=== PATIENT | female | born 1995 | race Hispanic/Latino ===

== ENCOUNTER 2021-04-26 16:04 | Emergency (ER) | payer BC ==
[2021-04-26 16:44] LABS: Urine Blood Negative (Negative); Urine Glucose Negative (Negative); Urine Protein Negative (Negative)
--- NOTE | 2021-04-26 16:59 | RAD REPORT ---
EXAM DESCRIPTION: US - Abdomen Exam Limited - 04/26/2021 4:46 pm CLINICAL HISTORY: ABD PAIN COMPARISON: No comparisons FINDINGS: No gallstones, sludge or other abnormalities within the gallbladder lumen. There is no wal l thickening or pericholecystic fluid. No common duct stone or biliary tree dilatation identified. IMPRESSION: Normal gallbladder and biliary tree ultrasound.
--- NOTE | 2021-04-26 18:06 | RAD REPORT ---
EXAM DESCRIPTION: CT - Stone Protocol - 04/26/2021 5:18 pm CLINICAL HISTORY: ABD PAIN COMPARISON: No comparisons TECHNIQUE: Axial 5 mm thick images were obtained without oral or IV contrast. The [id number] span s the entirety of the system including uppermost abdomen and lung bases. All CT scans are performed using dose optimization technique as appropriate and may include automated exposure control or mA/KV adjustment according to patient size. FINDINGS: No hydronephrosis is present and no obstructing ureteral calculi. No suspicious renal mass es. Isodense masses and pyelonephritis are not excluded on a stone protocol CT scan. No significant a drenal finding. No urinary bladder suspicious finding. No nonobstructing renal calculi seen. There ar e multiple phleboliths along the pelvic floor none of which are believed to be associated with the ur eter. Left deviated uterus shows no suspicious finding on noncontrast imaging. No ovarian suspicious findin g. There are no fallopian tube abnormality seen. Imaged portions of the liver, spleen and pancreas show no suspicious findings on non-contrast imaging . No gallbladder or biliary tree abnormality identified. No stomach or small bowel acute finding. There is a large amount of stool filling but not dilating th e entirety of the colon. No appendicitis. No hernia, mass or bulky lymphadenopathy noted. No free air, free fluid or inflammatory stranding. No significant bony abnormality. IMPRESSION: Noncontrast CT abdomen and pelvis imaging shows no significant or suspicious finding. Large stool volume is present throughout the colon with no acute colon wall thickening or mass identi fiable. Isodense masses and pyelonephritis are not excluded on stone protocol technique.
--- NOTE | 2021-04-26 19:39 | EDPHYS ---
Physician Documentation [facility] Name: Anyi Rocha Age: 26 yrs Sex: Female : 1995 Arrival Date: 04/26/2021 Time: 16:07 Bed 30 Private MD: ED Physician John Ruelas HPI: 04/26 20:18 This 26 yrs old Female presents to ER via Ambulatory with complaints of kb Abdominal Pain. 20:18 The patient presents with abdominal pain right upper lateral. Onset: The kb symptoms/episode began/occurred 2 month(s) ago. The symptoms do not radiate. Associated signs and symptoms: none. The symptoms are described as constant. Modifying factors: The symptoms are alleviated by nothing, the symptoms are aggravated by nothing. Severity of pain: At its worst the pain was moderate in the emergency department the pain is unchanged. The patient has not experienced similar symptoms in the past. The patient has not recently seen a physician. 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 - Social history:: Smoking status: Patient denies any tobacco usage or history of. ROS: 20:18 Constitutional: Negative for fever, chills, and weight loss. kb 20:18 Abdomen/GI: Positive for abdominal pain, of the anterior aspect of right lateral abdomen. 20:18 All other systems are negative. Exam: 20:18 Constitutional: This is a well developed, well nourished patient who is awake, alert, kb and in no acute distress. ENT: Moist Mucous membranes Chest/axilla: Normal chest wall appearance and motion. Cardiovascular: Regular rate and rhythm with a normal S1 and S2. No gallops, murmurs, or rubs. No pulse deficits. Respiratory: Respirations even and unlabored. No increased work of breathing, no retractions or nasal flaring. Skin: Warm, dry with normal turgor. Normal color. MS/ Extremity: Pulses equal, no cyanosis. Neurovascular intact. Full, normal range of motion. Neuro: Awake and alert, GCS 15, oriented to person, place, time, and situation. Moves all extremities. Normal gait. Psych: Awake, alert, with orientation to person, place and time. Behavior, mood, and affect are within normal limits. 20:18 Abdomen/GI: Inspection: abdomen appears normal, Bowel sounds: normal, in all quadrants, Palpation: soft, in all quadrants, mild abdominal tenderness, in the anterior aspect of right lateral abdomen. Vital Signs: 16:33 BP 129 / 85; Pulse 74; Resp 17; Temp 97.3; Pulse Ox 99% on R/A; Weight 65.77 kg (R); jl7 Height 5 ft. 6 in. (167.64 cm); Pain 5/10; 16:33 Body Mass Index 23.40 (65.77 kg, 167.64 cm) jl7 MDM: 16:32 Patient medically screened. kb 20:18 Data reviewed: vital signs, nurses notes. Data interpreted: Pulse oximetry: on room air kb is 99 %. Interpretation: normal. Counseling: I had a detailed discussion with the patient and/or guardian regarding: the historical points, exam findings, and any diagnostic results supporting the discharge/admit diagnosis, lab results, radiology results, the need for outpatient follow up, a family practitioner, to return to the emergency department if symptoms worsen or persist or if there are any questions or concerns that arise at home. 04/26 16:44 Order name: Urine Dipstick-Ancillary; Complete Time: 17:03 EDMS 04/26 17:11 Order name: Urine --Ancillary (enter results) bd 04/26 16:28 Order name: US Abdomen Limited; Complete Time: 17:03 jl7 04/26 17:10 Order name: CT Stone Protocol; Complete Time: 18:30 kb 04/26 17:12 Order name: Urine --Ancillary; Complete Time: 17:24 EDMS 04/26 16:28 Order name: Urine Dipstick-Ancillary (obtain specimen) jl7 Administered Medications: No medications were administered Disposition: 04/27 08:44 Co-signature as Attending Physician, John Ruelas MD I agree with the assessment and kdr plan of care. Disposition Summary: 04/26/21 19:38 Discharge Ordered Location: Home kb Condition: Stable kb Diagnosis - Abdominal pain, unspecified - right upper lateral abd kb Followup: kb - With: Emergency Department - When: As needed - Reason: Worsening of condition Followup: kb - With: Private Physician - When: 2 - 3 days - Reason: Recheck today's complaints, Continuance of care, Re-evaluation by your physician Discharge Instructions: - Discharge Summary Sheet kb - Muscle Cramps and Spasms, [id number] kb - Muscle Strain, [id number] kb Forms: - Medication Reconciliation Form kb - Thank You Letter kb - Antibiotic Education kb - Prescription Opioid Use kb Prescriptions: - Ibuprofen 600 mg Oral Tablet - take 1 tablet by ORAL route every 6 hours As needed take with food; 30 tablet; kb Refills: 0, Product Selection Permitted - Cyclobenzaprine 10 mg Oral Tablet - take 1 tablet by ORAL route every 8 hours As needed; 21 tablet; Refills: 0, kb Product Selection Permitted Signatures: Dispatcher [employer] EDLeonor Stack, John Berger MD MD kdr Leal, Jahala RN RN jl7 Corrections: (The following items were deleted from the chart) 04/26 17:15 17:04 Chest Single View+[email or web address] ordered. EDRI EDMS
--- NOTE | 2021-04-26 19:39 | ER ---
Nurse's Notes [facility] Name: Anyi Rocha Age: 26 yrs Sex: Female : 1995 Arrival Date: 04/26/2021 Time: 16:07 Bed 30 Private MD: Diagnosis: Abdominal pain, unspecified-right upper lateral abd Presentation: 04/26 16:33 Chief complaint: Patient states: RUQ pain and nausea x 2 months, worse today. jl7 Coronavirus screen: Client denies travel out of the [place] in the last 14 days. At this time, the client does not indicate any symptoms associated with coronavirus-19. Ebola Screen: No symptoms or risks identified at this time. Initial Sepsis Screen: Does the patient meet any 2 criteria? No. Patient's initial sepsis screen is negative. Does the patient have a suspected source of infection? No. Patient's initial sepsis screen is negative. Risk Assessment: Do you want to hurt yourself or someone else? Patient reports no desire to harm self or others. Onset of symptoms was April 26, 2021 at 03:00. Care prior to arrival: None. 16:33 Method Of Arrival: Ambulatory [facility] 16:33 Acuity: JORGE LUIS 3 jl7 Triage Assessment: 16:35 General: Appears in no apparent distress. uncomfortable, Behavior is calm, cooperative, jl7 appropriate for age. Pain: Complains of pain in right upper quadrant Pain currently is 5 out of 10 on a pain scale. GI: Reports upper abdominal pain, nausea. 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 - Social history:: Smoking status: Patient denies any tobacco usage or history of. Screenin:44 Abuse screen: Denies threats or abuse. Denies injuries from another. Nutritional tr6 screening: No deficits noted. Tuberculosis screening: No symptoms or risk factors identified. Fall Risk None identified. Assessment: 16:20 Reassessment: ABIMAEL Galvez in triage assessing pt. jl7 19:38 Reassessment: pt seen by BLENDING TANK HELPER Andi and cleared for discharge. tr6 Vital Signs: 16:33 BP 129 / 85; Pulse 74; Resp 17; Temp 97.3; Pulse Ox 99% on R/A; Weight 65.77 kg (R); jl7 Height 5 ft. 6 in. (167.64 cm); Pain 5/10; 16:33 Body Mass Index 23.40 (65.77 kg, 167.64 cm) jl7 ED Course: 16:07 Patient arrived in ED. as 16:32 Leon[facility] Escamilla [facility]-C [facility] kb 16:32 John Ruelas MD is Attending Physician. kb 16:35 Triage completed. jl7 16:35 Arm band placed on right wrist. Patient placed in waiting room, Patient notified of jl7 wait time. 16:46 US Abdomen Limited In Process Unspecified. EDMS 17:17 CT Stone Protocol In Process Unspecified. EDMS 19:16 Anca Francis, RN is Primary Nurse. tr6 19:44 Patient has correct armband on for positive identification. Bed in low position. Call tr6 light in reach. Side rails up X 1. 19:45 No provider procedures requiring assistance completed. Patient did not have IV access tr6 during this emergency room visit. Administered Medications: No medications were administered Outcome: 19:38 Discharge ordered by . kb 19:45 Discharged to home ambulatory. tr6 19:45 Condition: stable 19:45 Discharge instructions given to patient, family, mother Instructed on discharge instructions, follow up and referral plans. no drinking with medication, medication usage, safety practices, Demonstrated understanding of instructions, follow-up care, medications, Prescriptions given X 2. 19:46 Patient left the ED. tr6 Signatures: Dispatcher [employer] EDMS Leonor Escamilla FNP-C FNP-Ckb Martinez, Amelia as Leal, Jahala RN RN jl7 Anca Francis, DIAZ RN tr6
[2021-04-26 20:37] VITALS: BP 129/85; TEMP 97.3; O2SAT 99
== END 2021-04-26 19:46 | disposition home or self-care (01) ==
LOC: ER 16:04
DX: R10.11 Right upper quadrant pain (principal)
CPT/HCPCS: 74176; 76377; 76705; 81003; 81025; 99283